=== PATIENT | female | born 1925 | race American Indian/Alaskan Native ===

== ENCOUNTER 2016-12-08 19:33 | Inpatient (IN) | payer MEDICARE ==
[2016-12-08] MEDS ORDERED: APRESOLINE IV ONE ×2 (21:24→23:57)
--- NOTE | 2016-12-08 21:28 | Emergency Department Report ---
ED General Adult HPI - General Chief complaint: Altered Mental Status Stated complaint: UNRESPONSIVE Source: patient, EMS (ems notes not available at time of chart dictation), RN notes reviewed, old records reviewed Mode of arrival: Stretcher Limitations: Other (patient is demented, she karl poor historian, she has no recollection of the event.) - History of Present Illness Initial comments: This is an 89-year-old female. She is previously unknown to me. She has a past medical history of hypertension, dementia, contrary artery disease, peripheral vascular disease. She is brought to the hospital by EMS for resolved altered mental status. As per verbal report from group home nurse to my nurse, the patient was at home, sleeping in bed, and was nonresponsive. She did endorse some diaphoresis. She reports normal vitals and normal fingerstick. long-term paperwork indicates no change in medications recently. Upon arrival to the ER, the patient has no recollection of the event, and she has no complaints at this time. Medication list is reviewed, it appears that she takes Xanax, 0.25 mg once every 6 hours as needed for anxiety, takes multiple blood pressure medications, and Depakote as well. Recent laboratory studies are reviewed and are appreciated. -: Gradual Severity scale (0 -10): 0 Improves with: none Worsens with: none Associated Symptoms: confusion - Related Data Home Medications Medication Instructions Recorded Confirmed Last Taken Acetaminophen [Tylenol] 500 mg PO TID 01/15/13 12/08/16 12/08/16 Ascorbic Acid [Vitamin C] 500 mg PO BID 01/15/13 12/08/16 12/08/16 Calcium Carbonate/Vitamin D3 1 each PO DAILY 01/15/13 12/08/16 12/08/16 [Calcium Carb 500 mg Tab Chew] Docusate Sodium [Colace] 100 mg PO BID 01/15/13 12/08/16 12/08/16 Famotidine [Pepcid] 10 mg PO BID 01/15/13 12/08/16 12/08/16 Hydralazine HCl [Apresoline TAB] 25 mg PO BID 01/15/13 12/08/16 12/08/16 Isosorbide Mononitrate [Isosorbide 60 mg PO DAILY 01/15/13 12/08/16 12/08/16 Mononitrate ER] LORazepam [Ativan] 0.5 mg PO Q4H PRN 01/15/13 12/08/16 12/08/16 Memantine [Namenda] 5 mg PO BID 01/15/13 12/08/16 12/08/16 Metoprolol [Lopressor] 25 mg PO BID 01/15/13 12/08/16 12/08/16 Mirtazapine [Remeron] 15 mg PO DAILY 01/15/13 12/08/16 12/08/16 Multivitamin with Minerals [One 1 each PO DAILY 01/15/13 12/08/16 12/08/16 Daily] Potassium Chloride [K-Dur] 20 meq PO QDAY 01/15/13 12/08/16 12/08/16 cloNIDine [Catapres] 0.1 mg PO BID 01/15/13 12/08/16 12/08/16 Previous Rx's Medication Instructions Recorded Last Taken Type Rivaroxaban [Xarelto] 10 mg PO QDAY #7 tablet 01/18/13 12/08/16 Rx Allergies Allergy/AdvReac Type Severity Reaction Status Date / Time nitrofurantoin Allergy Vomiting Verified 01/15/13 02:09 [From Macrobid] nitrofurantoin Allergy Vomiting Verified 01/15/13 02:09 macrocrystalline [From Macrobid] ED Review of Systems ROS: Stated complaint: UNRESPONSIVE Other details as noted in HPI Comment: Unobtainable due to pts medical conditions ED Past Medical Hx - Past Medical History Hx Hypertension: Yes Hx CVA: Yes Hx Heart Attack/AMI: Yes Hx Tuberculosis: Yes - Social History Smoking Status: Never Smoker - Medications Home Medications: Home Medications Medication Instructions Recorded Confirmed Last Taken Type Acetaminophen [Tylenol] 500 mg PO TID 01/15/13 12/08/16 12/08/16 History Ascorbic Acid [Vitamin C] 500 mg PO BID 01/15/13 12/08/16 12/08/16 History Calcium Carbonate/Vitamin D3 1 each PO DAILY 01/15/13 12/08/16 12/08/16 History [Calcium Carb 500 mg Tab Chew] Docusate Sodium [Colace] 100 mg PO BID 01/15/13 12/08/16 12/08/16 History Famotidine [Pepcid] 10 mg PO BID 01/15/13 12/08/16 12/08/16 History Hydralazine HCl [Apresoline TAB] 25 mg PO BID 01/15/13 12/08/16 12/08/16 History Isosorbide Mononitrate [Isosorbide 60 mg PO DAILY 01/15/13 12/08/16 12/08/16 History Mononitrate ER] LORazepam [Ativan] 0.5 mg PO Q4H PRN 01/15/13 12/08/16 12/08/16 History Memantine [Namenda] 5 mg PO BID 01/15/13 12/08/16 12/08/16 History Metoprolol [Lopressor] 25 mg PO BID 01/15/13 12/08/16 12/08/16 History Mirtazapine [Remeron] 15 mg PO DAILY 01/15/13 12/08/16 12/08/16 History Multivitamin with Minerals [One 1 each PO DAILY 01/15/13 12/08/16 12/08/16 History Daily] Potassium Chloride [K-Dur] 20 meq PO QDAY 01/15/13 12/08/16 12/08/16 History cloNIDine [Catapres] 0.1 mg PO BID 01/15/13 12/08/16 12/08/16 History Rivaroxaban [Xarelto] 10 mg PO QDAY #7 tablet 01/18/13 12/08/16 12/08/16 Rx ED Physical Exam - General General appearance: alert, in no apparent distress - Head Head exam: Present: atraumatic, normocephalic - Eye Eye exam: Present: normal appearance, PERRL, EOMI. Absent: nystagmus, other - ENT ENT exam: Present: normal exam, normal orophraynx, mucous membranes moist, normal external ear exam - Neck Neck exam: Present: normal inspection - Respiratory Respiratory exam: Present: normal lung sounds bilaterally. Absent: respiratory distress, wheezes, rales, rhonchi, stridor, chest wall tenderness - Cardiovascular Cardiovascular Exam: Present: regular rate, normal rhythm, systolic murmur ( there is a 2/6 systolic murmur, right and left second intercostal space, radius to the carotids bilaterally.). Absent: bradycardia, tachycardia, irregular rhythm, diastolic murmur, rubs, gallop - GI/Abdominal GI/Abdominal exam: Present: soft, normal bowel sounds. Absent: distended, tenderness, guarding, rebound, rigid, pulsatile mass - Extremities Exam Extremities exam: Present: normal inspection, normal capillary refill, pedal edema. Absent: calf tenderness - Back Exam Back exam: Present: normal inspection, full ROM. Absent: tenderness, CVA tenderness (R), CVA tenderness (L), muscle spasm, paraspinal tenderness, vertebral tenderness - Neurological Exam Neurological exam: Present: alert (alert to name, and location), other ( Extraocular movements intact. Tongue midline. No facial droop. Facial sensation intact to light touch in the V1, V2, V3 distribution bilaterally. 5 and 5 strength in 4 extremities.. Sensation is intact to light touch in 4 extremities.) - Psychiatric Psychiatric exam: Present: normal affect, normal mood - Skin Skin exam: Present: warm, dry, intact, normal color. Absent: rash ED Course Vital Signs 12/08/16 12/08/16 20:45 23:15 Temperature 98.5 F Pulse Rate 91 H 73 Respiratory 16 16 Rate Blood Pressure 148/76 219/99 [Left] O2 Sat by Pulse 100 100 Oximetry - Reevaluation(s) Reevaluation #1: 12/08/16 22:14 Differential diagnosis: Iatrogenic oversedation, pneumonia, urinary tract infection, intracranial hemorrhage, electrolyte derangement, thyroid derangement , hypertensive urgency, transient ischemic attack, arrhythmia, structural cardiac disease, acute coronary syndrome Assessment and plan: 89-year-old female with episode of diaphoresis, altered mental status. She is also found to be unresponsive. The patient is afebrile currently, with unremarkable vital signs, with the exception of hypertension. Laboratory studies, urinalysis, noncontrast CT scan are pending. Patient's neurologic examination is nonfocal at this time, she is not a TPA candidate given her NIH score of 0. In addition, since we do not know the patient's last known well time, she is also not a TPA candidate. Reevaluation #2: 12/09/16 00:54 Laboratory studies suggest chronic hypothyroidism, renal insufficiency, urinary tract infection, noncontrast CT scan of the brain is negative. Still hypertensive. Given report of diaphoresis, unresponsiveness, uncertain clinical picture, patient to be admitted for presumed urinary tract infection, hypertensive urgency, syncope versus TIA. Case is presented to the Hospital physician, Dr. Muñoz, who accepts the patient to his service. ED Medical Decision Making - Lab Data Result diagrams: 12/08/16 22:56 12/08/16 22:56 - EKG Data -: EKG Interpreted by Me - EKG Data 12/08/16 22:16 Normal sinus, 74 bpm, high left ventricular voltage, abnormal EKG, not morphologically consistent with STEMI, normal axis, QTC prolonged. Abnormal EKG. - Radiology Data Radiology results: image reviewed interpreted by me: X-ray the chest is negative for acute disease, DJD, hyperinflated lungs are suggested Noncontrast CT scan of the brain is negative Critical care attestation.: If time is entered above; I have spent that time in minutes in the direct care of this critically ill patient, excluding procedure time. ED Disposition Clinical Impression: UTI (urinary tract infection), Altered mental status, Hypertensive urgency Disposition: -09 OP ADMIT IP TO THIS HOSP Is pt being admited?: Yes Does the pt Need Aspirin: Yes Condition: Good Referrals: PRIMARY CARE,MD [Primary Care Provider] - 3-5 Days
[2016-12-08 22:56] LABS: Bilirubin,Urine NEG (Negative); Blood,Urine NEG (Negative); Ketones,Urine NEG (Negative); Leukocyte Esterase,Urine MOD (Negative); Nitrite,Urine NEG (Negative); Urobilinogen,Urine < 2.0 mg/dL (<2.0)
--- NOTE | 2016-12-08 23:05 | Cat Scan Report ---
FINAL REPORT EXAM: CT HEAD/BRAIN WO CON HISTORY: Altered Mental Status TECHNIQUE: CT head without contrast PRIORS: None. FINDINGS: No acute intra-axial or extra-axial hemorrhage is identified. There is no evidence of midline shift or mass effect. The ventricles and sulci are within normal limits. Mcdowell-white matter differentiation is intact. No acute parenchymal abnormalities seen. There are patchy and confluent hypodensities within the supratentorial white matter. Bony calvarium is grossly intact. There is increased density within right mastoid air cells in the right middle ear which could reflect otitis/mastoiditis. 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
[2016-12-08 23:10] LABS: Hematocrit 30.6 % (30.3-42.9); Hemoglobin 9.7 gm/dl (10.1-14.3); Mean Corpuscular HGB Conc 32 % (30-34); Mean Corpuscular Hemoglobin 31 pg (28-32); Mean Corpuscular Volume 98 fl (79-97); Platelet Count 155 K/mm3 (140-440); Red Blood Count 3.13 M/mm3 (3.65-5.03); Red Cell Distribution Width 14.5 % (13.2-15.2); White Blood Count 3.5 K/mm3 (4.5-11.0)
[2016-12-08 23:25] LABS: BUN/Creatinine Ratio 15.78; Chloride 104.8 mmol/L (98-107); Potassium 4.4 mmol/L (3.6-5.0)
[2016-12-08 23:27] LABS: Creatine Kinase 80 units/L (30-135)
[2016-12-08] MEDS ORDERED: SYNTHROID PO STA (23:57)
[2016-12-08] MEDS ORDERED: ROCEPHIN/NS 1 GM/50 ML 1 GM/50 ML BAG IV ONE (23:57)
[2016-12-08] MEDS ORDERED: NACL 0.9% 250ML 250 ML IV ONE (23:58)
[2016-12-09] MEDS ORDERED: SYNTHROID PO ONE (00:01)
[2016-12-09 00:40] LABS: INR 1.18 (0.87-1.13)
[2016-12-09] MEDS ORDERED: TYLENOL PO PRN (00:53)
[2016-12-09] MEDS ORDERED: BABY ASPIRIN PO ONE (00:56)
[2016-12-09] MEDS ORDERED: ZOFRAN IV PRN (00:56)
[2016-12-09] MEDS ORDERED: NACL 0.9% 1000 ML 1,000 ML IV SCH (01:00)
[2016-12-09] MEDS: APRESOLINE IV PRN ×3 (01:21→14:32)
[2016-12-09] MEDS ORDERED: CATAPRES PO ONE (01:28)
[2016-12-09] MEDS ORDERED: BABY ASPIRIN ONE (01:32)
--- NOTE | 2016-12-09 06:14 | History and Physical Report ---
CHIEF COMPLAINT: Change in mental status. HISTORY OF PRESENT ILLNESS: The patient is an 89-year-old female brought [facility] a [facility] after she was found to be less responsive. There was also a history of diaphoresis. No history of chest pain. There was also no history of fever, nausea or vomiting. By the time the patient got to the Emergency Room, she was able to respond appropriately. PAST MEDICAL HISTORY: Pertinent for hypertension, cerebrovascular accident, coronary artery disease, status post myocardial infarction, history of tuberculosis. PAST SURGICAL HISTORY: History not well known. FAMILY HISTORY: Noncontributory. SOCIAL HISTORY: The patient stays at a [facility], does not smoke, does not drink alcohol and does not use illicit drugs. MEDICATIONS: The patient is on Tylenol 500 mg by mouth 3 times daily, ascorbic acid 500 mg by mouth twice daily, vitamin D3 one by mouth daily, docusate sodium 100 mg by mouth twice daily, Pepcid 10 mg by mouth twice daily, Apresoline for hydralazine 25 mg by mouth twice daily, isosorbide mononitrate 60 mg by mouth daily, Ativan 0.5 mg p.o. q. 4 hours as needed for anxiety, Namenda or memantine 5 mg by mouth twice daily, Lopressor 25 mg by mouth twice daily, Remeron 15 mg by mouth daily, multivitamin with mineral 1 by mouth daily, K-Dur, potassium chloride 20 mEq by mouth daily, Catapres or clonidine 0.1 mg by mouth twice daily, rivaroxaban or Xarelto 10 mg by mouth daily. ALLERGIES: THE PATIENT IS ALLERGIC TO NITROFURANTOIN and MICROCRYSTALLINE. REVIEW OF SYSTEMS: CONSTITUTIONAL: There is no fever, no chills, no diaphoresis. HEENT: There is no headache or sore throat. CARDIOVASCULAR SYSTEM: There is no chest pain, orthopnea. RESPIRATORY: There is no shortness of breath or cough. GASTROINTESTINAL SYSTEM: There is no nausea, no vomiting, no abdominal pain, diarrhea or constipation. NEUROLOGIC SYSTEM: Change in mental status noted. MUSCULOSKELETAL SYSTEM: There is no joint pain or swelling. DERMATOLOGICAL SYSTEM: Show no skin rash or itching. GENITOURINARY: Show no dysuria, hematuria or flank pain. Rest of system review is normal. PHYSICAL EXAMINATION: GENERAL: At the time of exam, the patient was found to be alert and oriented x 3 and not in acute distress. VITAL SIGNS: Shows normal temperature with a pulse of 72, respirations 18, blood pressure of 209/106, which later came down to 181/89. HEENT: Eyes show pupils to be equal, round, reactive to light and accommodation. Extraocular muscles are intact. NECK: Supple with no JVD or carotid bruit. CARDIOVASCULAR SYSTEM: Show first and second heart sounds with no gallops or murmur. RESPIRATORY SYSTEM: Show good air entry on both sides of the lung with no abnormal breath sounds. GASTROINTESTINAL SYSTEM: Show abdomen to be full, soft, nontender with no organomegaly or rigidity. NEUROLOGIC: Showed no focal deficit. MUSCULOSKELETAL: Show no joint swelling or tenderness. DERMATOLOGICAL: Showed no skin rash or itching. GENITOURINARY SYSTEM: Showing no costovertebral angle tenderness. PERTINENT LABORATORY AND IMAGING STUDIES: The patient had CBC done that shows low white count of 3.5 with low hemoglobin of 9.7 and low hematocrit of 30.6. The patient's coagulation studies showed INR of 1.18. Chemistry shows elevated BUN of 30 with elevated creatinine of 1.9. The patient's TSH level was high with a value of 7.27 with normal free T4. The patient's urinalysis show high urine WBC of 17 with moderate leukocyte esterase and negative urine nitrites. IMAGING STUDIES: The patient had CT of the head done that shows chronic small vessel white matter ischemic change. There is increased density inside the right mastoid air cells and right middle ear, which may indicate mastoiditis DIAGNOSES: 1. Altered mental status. 2. Urinary tract infection. 3. Hypertensive crisis. 4. Mastoiditis. PLAN: The patient will be admitted to medical floor and would be on sequential compressive devices for DVT prophylaxis. The patient will have cardiac enzymes, troponin, total CK and CK-MB checked q. 6 hours x 2 more levels. The patient will be on Tylenol 650 mg every 4 hours for fever, headache and will be on IV Rocephin 1 gram daily. Also, the patient will be on heparin 5000 units q. 12 hours for DVT prophylaxis and will be on hydralazine 10 mg IV every 4 hours for elevated blood pressure above 160/90. The patient will be on normal saline at 75 mL an hour, will be on IV Zofran 4 mg every 8 hours for nausea and vomiting. The patient will also be on oxygen by nasal cannula at 2 liter per minute and will have Nephrology consult because of chronic kidney disease with on-call supervisor photocomposition, Dr. sanchez. The patient's home medications will be reconciled and started. The patient's diet will be 2 g sodium diet. JOB# [id number] OCN/PAM [email or web address]
--- NOTE | 2016-12-09 07:20 | XRay Report ---
Single view chest: History: Mental status. Findings: Borderline cardiomegaly. Trachea is midline. No consolidation, pneumothorax or pleural effusion. Impression: No acute cardiopulmonary findings.
--- NOTE | 2016-12-09 07:45 | Admit Criteria Form ---
Admission Criteria Documentation: HYPERTENSION Clinical Indications for Admission to Inpatient Care ( chefornak/check or initial the applicable condition/criteria) Admission is indicated for 1 or more of the following(1)(2)(3)(4)(5)(6)(7)(8)(9) (10): [ ]I. Hypertensive emergency, with evidence of acute and progressing target organ disease as indicated by 1 or more of the following: [ ]a) Hypertensive encephalopathy (e.g., confusion, altered mental status) (11) [ ]b) Cerebral infarction [ ]c) Intracranial hemorrhage [ ]d) Myocardial ischemia or infarction [ ]e) Heart failure (eg. Pulmonary edema) [ ]f) Aortic dissection [ ]g) Increased creatinine (new) with reduction of more than 50% in estimated glomerular filtration rate from baseline [ ]h) Seizure [ ]i) Papilledema [ ]j) Retinal hemorrhage [ ]k) Microangiopathic hemolytic anemia [ ]l) Other significant finding secondary to hypertension [ ]II. Adrenergic or sympathomimetic crisis (e.g., severe hypertension due to pheochromocytoma crisis, cocaine, phencyclindine, or amphetamine intoxication, or clonidine withdrawal) [ X]III. Severe hypertension (SBP greater than 180 mmHg or DBP greater than 110 mmHg or greater than the 95th percentile for age, gender, and height in pediatric patients) that cannot be controlled (e.g., to SBP less than 160 mmHg and DBP less than 100 mmHg in adults) by treatment with oral medication in emergency department or observation care (12) Extended stay beyond goal length of staymay be needed for(21)(22): [ ]a) Persistent hypertensive encephalopathy [ ]b) Continuation of pulmonary edema [ ]c) Recurring or persistent severe hypertension [ ]d) Target organ damage (eg, angina, stroke, aortic dissection) The original [employer] content created by [employer] has been revised. The portions of the content which have been revised are identified through the use of italic text or in bold, and [employer] has neither reviewed nor approved the modified material. All other unmodified content is copyright [employer]. Please see references footnoted in the original [employer] edition 2016 Admission Criteria Met: Yes
[2016-12-09] MEDS: TYLENOL PO SCH ×3 (08:47→21:45)
[2016-12-09] MEDS: PEPCID PO SCH ×2 (09:56→21:45)
[2016-12-09] MEDS: HEPARIN SUB-Q SCH ×2 (09:56→21:45)
[2016-12-09] MEDS: LOPRESSOR PO SCH ×2 (09:57→21:45)
[2016-12-09] MEDS: VITAMIN C PO SCH ×2 (09:57→21:45)
[2016-12-09] MEDS: IMDUR PO SCH (09:57)
[2016-12-09] MEDS: COLACE PO SCH ×2 (09:57→21:45)
[2016-12-09] MEDS: CATAPRES PO SCH ×2 (09:58→21:45)
[2016-12-09] MEDS: OYSCO D 500 MG-200 UNIT PO SCH (09:58)
[2016-12-09] MEDS: THERAGRAN-M Tab PO SCH (09:58)
[2016-12-09] MEDS: NAMENDA PO SCH ×2 (09:59→21:45)
[2016-12-09] MEDS: REMERON PO SCH (09:59)
[2016-12-09] MEDS ORDERED: MULTIVITAMIN WITH MINERALS PO SCH (10:00)
[2016-12-09] MEDS ORDERED: K-DUR PO SCH (10:00)
[2016-12-09] MEDS ORDERED: VITAMIN D3 PO SCH (10:00)
[2016-12-09] MEDS ORDERED: CALCIUM CARBONATE PO SCH (10:00)
[2016-12-09] MEDS ORDERED: NON-FORMULARY (Ascorbic Acid [Vitamin C] 500 MG) PO SCH (10:00)
[2016-12-09] MEDS ORDERED: APRESOLINE PO SCH ×2 (10:00→22:00)
[2016-12-09] MEDS ORDERED: NON-FORMULARY (Hydralazine Hcl [Apresoline Tab] 25 MG) PO SCH (10:00)
--- NOTE | 2016-12-09 14:30 | Event Note ---
Date: 12/09/16 Patient seen and examined, in no acute distress. still confused. call placed for medication verification in respect to xanax, depakote and xarelto. sandra current care.
--- NOTE | 2016-12-09 18:12 | Consultation ---
History of Present Illness - Reason for Consult Consult date: 12/09/16 chronic renal failure Requesting physician: MARIAN MCKEON - History of Present Illness This is an 89yo AAF, well known to me from outpatient CKD follow ups, with past medical history of hypertension, dementia, coronary artery disease, peripheral vascular disease, CKD stage 4, secondary hyperparathyroidism, who was sent from [place] to [facility] ER for change of mental status and unresponsiveness. In ER patient was found to have accelerated HTN with BP as high as 219/99, mmHg. CXR was unremarkable and CT head showed chronic white matter ischemic changes. Labs showed elevated BUN/Cr at 30/1.9mg/dl, UA with elevated WBC at 17/ HPF. pt was started on ceftrixone for possible UTI. Renal consult requested for management of CKD. Renal function appears to be stable, outpatient Cr has been running around 2.2- 2.6mg/dl in the past. Pt not able to give detailed history. Past History Past Medical History: hypertension, renal failure Past Surgical History: PTCA Social history: other (lives in [place]) Family history: diabetes, hypertension Medications and Allergies Allergies Allergy/AdvReac Type Severity Reaction Status Date / Time nitrofurantoin Allergy Vomiting Verified 01/15/13 02:09 [From Macrobid] nitrofurantoin Allergy Vomiting Verified 01/15/13 02:09 macrocrystalline [From Macrobid] Home Medications Medication Instructions Recorded Confirmed Last Taken Type Acetaminophen [Tylenol] 500 mg PO TID 01/15/13 12/09/16 01/14/13 History Ascorbic Acid [Vitamin C] 500 mg PO BID 01/15/13 12/09/16 01/14/13 History Calcium Carbonate/Vitamin D3 1 each PO DAILY 01/15/13 12/08/16 12/08/16 History [Calcium Carb 500 mg Tab Chew] Docusate Sodium [Colace] 100 mg PO BID 01/15/13 12/08/16 12/08/16 History Famotidine [Pepcid] 10 mg PO BID 01/15/13 12/08/16 12/08/16 History Hydralazine HCl [Apresoline TAB] 25 mg PO BID 01/15/13 12/08/16 12/08/16 History Isosorbide Mononitrate [Isosorbide 60 mg PO DAILY 01/15/13 12/08/1612/08/17 History Mononitrate ER] LORazepam [Ativan] 0.5 mg PO Q4H PRN 01/15/13 12/08/16 12/08/16 History Memantine [Namenda] 5 mg PO BID 01/15/13 12/08/16 12/08/16 History Metoprolol [Lopressor] 25 mg PO BID 01/15/13 12/08/16 12/08/16 History Mirtazapine [Remeron] 15 mg PO DAILY 01/15/13 12/08/16 12/08/16 History Multivitamin with Minerals [One 1 each PO DAILY 01/15/13 12/08/16 12/08/16 History Daily] Potassium Chloride [K-Dur] 20 meq PO QDAY 01/15/13 12/08/16 12/08/16 History cloNIDine [Catapres] 0.1 mg PO BID 01/15/13 12/08/16 12/08/16 History Rivaroxaban [Xarelto] 10 mg PO QDAY #7 tablet 01/18/13 12/08/16 12/08/16 Rx Active Meds: Active Medications Acetaminophen (Tylenol) 500 mg PO TID [facility] Last Admin: 12/09/16 14:33 Dose: 500 mg Ascorbic Acid (Vitamin C) 500 mg PO BID [facility] Last Admin: 12/09/16 09:57 Dose: 500 mg Calcium/Vitamin D (Oysco D 500 Mg-200 Unit) 1 each PO DAILY [facility] Last Admin: 12/09/16 09:58 Dose: 1 each Clonidine HCl (Catapres) 0.1 mg PO BID [facility] Last Admin: 12/09/16 09:58 Dose: 0.1 mg Docusate Sodium (Colace) 100 mg PO BID [facility] Last Admin: 12/09/16 09:57 Dose: 100 mg Famotidine (Pepcid) 10 mg PO BID [facility] Last Admin: 12/09/16 09:56 Dose: 10 mg Heparin Sodium (Porcine) (Heparin) 5,000 unit SUB-Q Q12HR [facility] Last Admin: 12/09/16 09:56 Dose: 5,000 unit Hydralazine HCl (Apresoline) 10 mg IV Q4HR PRN PRN Reason: Blood Pressure Last Admin: 12/09/16 14:32 Dose: 10 mg Hydralazine HCl (Apresoline) 25 mg PO BID [facility] Last Admin: 12/09/16 09:58 Dose: 25 mg Ceftriaxone Sodium (Rocephin/Ns 1 Gm/50 Ml) 1 gm in 50 mls @ 100 mls/hr IV Q24HR@2200 [facility] PRN Reason: Protocol Sodium Chloride (Nacl 0.9% 1000 Ml) 1,000 mls @ 75 mls/hr IV DIRECT [facility] Last Admin: 12/09/16 05:34 Dose: 75 mls/hr Isosorbide Mononitrate (Imdur) 60 mg PO DAILY [facility] Last Admin: 12/09/16 09:57 Dose: 60 mg Lorazepam (Ativan) 0.5 mg PO Q4H PRN PRN Reason: Anxiety Memantine (Namenda) 5 mg PO BID [facility] Last Admin: 12/09/16 09:59 Dose: 5 mg Metoprolol Tartrate (Lopressor) 25 mg PO BID [facility] Last Admin: 12/09/16 09:57 Dose: 25 mg Mirtazapine (Remeron) 15 mg PO DAILY [facility] Last Admin: 12/09/16 09:59 Dose: 15 mg Multivitamins/Minerals (Theragran-M Tab) 1 each PO QDAY [facility] Last Admin: 12/09/16 09:58 Dose: 1 each Ondansetron HCl (Zofran) 4 mg IV Q8H PRN PRN Reason: Nausea And Vomiting Potassium Chloride (K-Dur) 20 meq PO QDAY [facility] Last Admin: 12/09/16 09:58 Dose: 20 meq Review of Systems ROS unobtainable: due to mental status Exam - Vital Signs Vital signs: Vital Signs Temp Pulse Resp BP Pulse Ox 98.5 F 91 H 16 148/76 100 12/08/16 20:45 12/08/16 20:45 12/08/16 20:45 12/08/16 20:45 12/08/16 20:45 - General Appearance General appearance: appears stated age, fatigue, frail EENT: ATNC, PERRL, mucous membranes moist Neck: Present: neck supple Respiratory: Clear to Ascultation Heart: regular, S1S2 Gastrointestinal: Present: normoactive bowel sounds Integumentary: no rash, other (no edema ) Neurologic: confused, disoriented Results - Lab Results 12/08/16 22:56 08/21/17 22:56 Most recent lab results Calcium 9.0 mg/dL (8.4-10.2) 12/08/16 22:56 Laboratory Tests 12/08/16 12/08/16 12/08/16 22:04 22:56 22:56 PT INR Total Creatine Kinase CK-MB (CK-2) CK-MB (CK-2) Rel Index Troponin T < 0.010 Albumin TSH 7.270 H Free T4 Urine Color Straw Urine Turbidity Clear Urine pH 7.0 Ur Specific [place] 1.006 Urine Protein 30 mg/dl Urine Glucose (UA) Neg Urine Ketones Neg Urine Blood Neg Urine Nitrite Neg Urine Bilirubin Neg Urine Urobilinogen < 2.0 Ur Leukocyte Esterase Mod Urine WBC (Auto) 17.0 H Urine RBC (Auto) 1.0 U Epithel Cells (Auto) < 1.0 Valproic Acid 12/08/16 12/09/16 12/09/16 22:56 00:00 00:10 PT 15.6 H INR 1.18 H Total Creatine Kinase CK-MB (CK-2) CK-MB (CK-2) Rel Index Troponin T Albumin TSH Free T4 1.11 Urine Color Urine Turbidity Urine pH Ur Specific [place] Urine Protein Urine Glucose (UA) Urine Ketones Urine Blood Urine Nitrite Urine Bilirubin Urine Urobilinogen Ur Leukocyte Esterase Urine WBC (Auto) Urine RBC (Auto) U Epithel Cells (Auto) Valproic Acid 20.3 L 12/09/16 12/09/16 12/09/16 06:10 08:47 08:47 PT INR Total Creatine Kinase 150 H CK-MB (CK-2) 3.0 CK-MB (CK-2) Rel Index 2.0 Troponin T 0.014 Albumin 3.5 L TSH Free T4 Urine Color Urine Turbidity Urine pH Ur Specific [place] Urine Protein Urine Glucose (UA) Urine Ketones Urine Blood Urine Nitrite Urine Bilirubin Urine Urobilinogen Ur Leukocyte Esterase Urine WBC (Auto) Urine RBC (Auto) U Epithel Cells (Auto) Valproic Acid 19.7 L Assessment and Plan - Patient Problems (1) Hypertensive urgency Current Visit: Yes Status: Acute Plan to address problem: pt receiving IV hydralazine prn for target BP <160/90 will increase po hydralazine to 100mg po tid and add lisinopril 40mg po qd for additional BP control, given stable renal function. Will d/c K Dur to avoid hyperkalemia while being treated with YESI-I (2) CKD (chronic kidney disease) stage 4, GFR 15-29 ml/min Current Visit: Yes Status: Chronic Plan to address problem: renal function stable, better than patient's baseline with Cr around 2.2 -2.6mg/ dl over the last year. cont supportive care for CKD, avoid nephrotoxins, NSAIDs, IV contrast. Will monitor I/Os, lytes/renal parameters and make further recommendations. (3) UTI (urinary tract infection) Current Visit: Yes Status: Acute Qualifiers: Urinary tract infection type: U Hematuria presence: H Indwelling urinary catheter type: I Encounter type: E Plan to address problem: cont ceftriaxone (4) Altered mental status Current Visit: Yes Status: Acute Qualifiers: Altered mental status type: A Coma depth: C Coma timing: C
[2016-12-09] MEDS: ROCEPHIN/NS 1 GM/50 ML 1 GM/50 ML BAG IV SCH (21:45)
[2016-12-09] MEDS: ATIVAN PO PRN (21:45)
[2016-12-09] MEDS: ZESTRIL PO SCH (21:45)
[2016-12-09] MEDS: APRESOLINE PO SCH (21:45)
[2016-12-10] MEDS: ATIVAN PO PRN ×3 (02:42→23:50)
[2016-12-10] MEDS: APRESOLINE PO SCH ×3 (04:27→20:28)
[2016-12-10] MEDS ORDERED: NORMODYNE IV ONE (05:14)
[2016-12-10] MEDS ORDERED: CATAPRES-TTS PATCH TD SCH ×2 (06:00)
--- NOTE | 2016-12-10 09:36 | Progress Note ---
Assessment and Plan Assessment and plan: Shows an 89-year-old female with past medical history of CAD, hypertension, dementia, CAD, PVD and secondary hyperparathyroidism was admitted to the hospital from halfway for unresponsiveness. I did discuss with the halfway facility decided that the patient was found unresponsive although did have a pulse and was sent to the hospital. Prior to this even though was no other complaints noted. She is on her normal state confused and is totally dependent for care except feeding herself. In the ER she was noted to have systolic blood pressure 219/99 and an unremarkable chest x-ray with a CT head showing chronic white matter ischemic changes. She was also noted to have urinary tract infection or she cannot give us any history she is being treated for possible UTI done maybe contributing to this. On arrival to the facility she was awake alert and oriented to person No other events as noted. Also on review of the facility they do not recall her taken xarelto. Metabolic encephalopathy with unresponsiveness-resolved * Possibly secondary to UTI, continue current treatment. No growth in culture Acute cystitis * Continue Rocephin Hypertensive urgency * Clonidin patch replaced, possibly rebound. Nephrology input noted with increase in hydralazine CKD stage IV * at baseline Dementia * Continue home meds, hold xanax for now. CAD/PVD * Facility states patient is not on xarleto. Continue current treatment Anxiety disorder * Redirection Dvt/gi PROPHY Disposition: Anticipate discharge in AM Case discussed with Nursing staff and [facility]. History Interval history: Patient seen and examined today remains pleasantly confused on the nose that she takes blood pressure medications.Therefore concerned due to altered mental status from review of reports and also I personally called the halfway and they did state that the patient is always confused due to her Dementia condition. She is total care dependent. She does ambulate with a wheelchair. She was admitted in the hospital due to"were unable to wake her up. She had a pulse" Hospitalist Physical - Physical exam Narrative exam: VITAL SIGNS: Reviewed. GENERAL: The patient appeared well nourished and normally developed, pleasantly confused. Vital signs as documented. HEAD: No signs of head trauma. EYES: Pupils are equal. Extraocular motions intact. EARS: Hearing grossly intact. MOUTH: Oropharynx is normal. NECK: No adenopathy, no JVD. CHEST: Chest with clear breath sounds bilaterally. No wheezes, rales, or rhonchi. CARDIAC: Regular rate and rhythm. S1 and S2, without murmurs, gallops, or rubs. VASCULAR: No Edema. Peripheral pulses normal and equal in all extremities. ABDOMEN: Soft, without detectable tenderness. No sign of distention. No rebound or guarding, and no masses palpated. Bowel Sounds normal. MUSCULOSKELETAL: Good range of motion of all major joints. Extremities without clubbing, cyanosis or edema. NEUROLOGIC EXAM: Alert and oriented x person only. No focal sensory or strength deficits. Speech normal. Follows commands. Gait not assessed PSYCHIATRIC: Mood normal. SKIN: No rash or lesions. - Constitutional Vitals: Temp Pulse Resp BP Pulse Ox 98.1 F 102 H 18 170/94 97 12/10/16 04:40 12/10/16 06:40 12/10/16 04:40 12/10/16 06:40 12/10/16 04:40 Results - Labs CBC & Chem 7: 12/08/16 22:56 12/08/16 22:56 Labs: Laboratory Last Values WBC 3.5 K/mm3 (4.5-11.0) L 12/08/16 22:56 RBC 3.13 M/mm3 (3.65-5.03) L 12/08/16 22:56 Hgb 9.7 gm/dl (10.1-14.3) L 12/08/16 22:56 Hct 30.6 % (30.3-42.9) 12/08/16 22:56 MCV 98 fl (79-97) H 12/08/16 22:56 MCH 31 pg (28-32) 12/08/16 22:56 MCHC 32 % (30-34) 12/08/16 22:56 RDW 14.5 % (13.2-15.2) 12/08/16 22:56 Plt Count 155 K/mm3 (140-440) 12/08/16 22:56 PT 15.6 Sec. (12.2-14.9) H 12/09/16 00:00 INR 1.18 (0.87-1.13) H 12/09/16 00:00 APTT TNR 12/08/16 22:56 Sodium 141 mmol/L (137-145) 12/08/16 22:56 Potassium 4.4 mmol/L (3.6-5.0) 12/08/16 22:56 Chloride 104.8 mmol/L (98-107) 12/08/16 22:56 Carbon Dioxide 23 mmol/L (22-30) 12/08/16 22:56 Anion Gap 18 mmol/L 12/08/16 22:56 BUN 30 mg/dL (7-17) H 12/08/16 22:56 Creatinine 1.9 mg/dL (0.7-1.2) H 12/08/16 22:56 Estimated GFR 30 ml/min 12/08/16 22:56 BUN/Creatinine Ratio 15.78 % 12/08/16 22:56 Glucose 94 mg/dL (65-100) 12/08/16 22:56 Calcium 9.0 mg/dL (8.4-10.2) 12/08/16 22:56 Ammonia 45.0 umol/L (25-60) 12/08/16 22:56 Total Creatine Kinase 68 units/L (30-135) 12/09/16 12:24 CK-MB (CK-2) 3.0 ng/mL (0.0-4.0) 12/09/16 12:24 CK-MB (CK-2) Rel Index 4.4 (0-4) H 12/09/16 12:24 Troponin T 0.019 ng/mL (0.00-0.029) 12/09/16 12:24 Albumin 3.5 g/dL (3.9-5) L 12/09/16 08:47 TSH 7.270 mlU/mL (0.270-4.200) H 12/08/16 22:56 Free T4 1.11 ng/dL (0.76-1.46) 12/09/16 00:10 Urine Color Straw (Yellow) 12/08/16 22:04 Urine Turbidity Clear (Clear) 12/08/16 22:04 Urine pH 7.0 (5.0-7.0) 12/08/16 22:04 Ur Specific [place] 1.006 (1.003-1.030) 12/08/16 22:04 Urine Protein 30 mg/dl mg/dL (Negative) 12/08/16 22:04 Urine Glucose (UA) Neg mg/dL (Negative) 12/08/16 22:04 Urine Ketones Neg mg/dL (Negative) 12/08/16 22:04 Urine Blood Neg (Negative) 12/08/16 22:04 Urine Nitrite Neg (Negative) 12/08/16 22:04 Urine Bilirubin Neg (Negative) 12/08/16 22:04 Urine Urobilinogen < 2.0 mg/dL (<2.0) 12/08/16 22:04 Ur Leukocyte Esterase Mod (Negative) 12/08/16 22:04 Urine WBC (Auto) 17.0 /HPF (0.0-6.0) H 12/08/16 22:04 Urine RBC (Auto) 1.0 /HPF (0.0-6.0) 12/08/16 22:04 U Epithel Cells (Auto) < 1.0 /HPF (0-13.0) 12/08/16 22:04 Valproic Acid 19.7 ug/mL (50-100) L 12/09/16 08:47
--- NOTE | 2016-12-10 11:03 | Progress Note ---
Assessment and Plan - Patient Problems (1) Hypertensive urgency Current Visit: Yes Status: Acute Plan to address problem: BP improved with increased po hydralazine to 100mg po tid and added lisinopril 40mg po qd. monitor BP on current BP regimen. Will d/c K Dur to avoid hyperkalemia while being treated with YESI-I (2) CKD (chronic kidney disease) stage 4, GFR 15-29 ml/min Current Visit: Yes Status: Chronic Plan to address problem: renal function stable, better than patient's baseline with Cr around 2.2 -2.6mg/ dl over the last year. cont supportive care for CKD, avoid nephrotoxins, NSAIDs, IV contrast. Will monitor I/Os, lytes/renal parameters and make further recommendations. (3) UTI (urinary tract infection) Current Visit: Yes Status: Acute Qualifiers: Urinary tract infection type: U Hematuria presence: H Indwelling urinary catheter type: I Encounter type: E Plan to address problem: cont ceftriaxone (4) Altered mental status Current Visit: Yes Status: Acute Qualifiers: Altered mental status type: A Coma depth: C Coma timing: C Subjective Date of service: 12/10/16 Interval history: Pt awake, confused, disoriented today. in no acute respiratory distress Objective - Vital Signs Vital signs: Vital Signs - 12hr 12/10/16 12/10/16 12/10/16 00:08 04:40 05:31 Temperature 98.2 F 98.1 F Pulse Rate 100 H 97 H 101 H Respiratory 18 18 Rate Blood Pressure 142/86 188/115 228/116 O2 Sat by Pulse 97 97 Oximetry 12/10/16 12/10/16 06:40 08:00 Temperature 97.9 F Pulse Rate 102 H 106 H Respiratory 18 Rate Blood Pressure 170/94 141/111 O2 Sat by Pulse Oximetry - General Appearance General appearance: appears stated age, frail EENT: ATNC, PERRL, mucous membranes moist Neck: no JVD Respiratory: Present: Clear to Ascultation Cardiology: regular, S1S2 Gastrointestinal: normal, normoactive bowel sounds Integumentary: no rash, other (no edema ) Neurologic: no focal deficit, CN 3-12 intact - Lab 12/08/16 22:56 12/08/16 22:56 Most recent lab results Calcium 9.0 mg/dL (8.4-10.2) 12/08/16 22:56
[2016-12-10 13:18] LABS: BUN/Creatinine Ratio 13.91; Calcium 9.2 mg/dL (8.4-10.2); Chloride 105.3 mmol/L (98-107); Potassium 4.2 mmol/L (3.6-5.0)
[2016-12-10] MEDS: IMDUR PO SCH (17:06)
[2016-12-10] MEDS: CATAPRES PO SCH ×2 (17:06→23:49)
[2016-12-10] MEDS: ZESTRIL PO SCH (17:06)
[2016-12-10] MEDS: REMERON PO SCH (17:06)
[2016-12-10] MEDS: LOPRESSOR PO SCH ×2 (17:07→23:49)
[2016-12-10] MEDS: NAMENDA PO SCH (17:07)
[2016-12-10] MEDS: PEPCID PO SCH ×2 (17:07→23:49)
[2016-12-10] MEDS: THERAGRAN-M Tab PO SCH (17:08)
[2016-12-10] MEDS: HEPARIN SUB-Q SCH ×2 (17:08→23:50)
[2016-12-10] MEDS: OYSCO D 500 MG-200 UNIT PO SCH (17:08)
[2016-12-10] MEDS: VITAMIN C PO SCH ×2 (17:08→23:49)
[2016-12-10] MEDS: COLACE PO SCH ×2 (17:08→23:49)
[2016-12-10] MEDS: TYLENOL PO SCH ×2 (17:09→20:00)
[2016-12-10] MEDS: ROCEPHIN/NS 1 GM/50 ML 1 GM/50 ML BAG IV SCH (23:47)
[2016-12-11] MEDS: APRESOLINE IV PRN ×2 (00:22→06:53)
[2016-12-11] MEDS: NAMENDA PO SCH ×2 (03:30→15:05)
[2016-12-11] MEDS: APRESOLINE PO SCH ×2 (03:30→10:59)
[2016-12-11 06:37] LABS: BUN/Creatinine Ratio 14.09; Chloride 105.9 mmol/L (98-107); Potassium 4.2 mmol/L (3.6-5.0)
[2016-12-11] MEDS: ATIVAN PO PRN (06:50)
[2016-12-11] MEDS: HEPARIN SUB-Q SCH (10:57)
[2016-12-11] MEDS: PEPCID PO SCH (10:58)
[2016-12-11] MEDS: ZESTRIL PO SCH (10:58)
[2016-12-11] MEDS: COLACE PO SCH (10:59)
[2016-12-11] MEDS: OYSCO D 500 MG-200 UNIT PO SCH (10:59)
[2016-12-11] MEDS: THERAGRAN-M Tab PO SCH (10:59)
[2016-12-11] MEDS: VITAMIN C PO SCH (10:59)
[2016-12-11] MEDS: CATAPRES PO SCH (10:59)
[2016-12-11] MEDS: IMDUR PO SCH (10:59)
[2016-12-11] MEDS: REMERON PO SCH (11:00)
[2016-12-11] MEDS: LOPRESSOR PO SCH (11:01)
[2016-12-11] MEDS: TYLENOL PO SCH ×2 (11:01→14:48)
--- NOTE | 2016-12-11 11:25 | Discharge Summary ---
Providers - Providers Date of Admission: 12/09/16 00:47 Date of discharge: 12/11/16 Attending physician: APOLINAR MENEZES MD 12/09/16 06:10 Consult to Physician [CONS] Routine Consulting Provider: SHINE MEDINA Reason For Exam: CKD Place consult to:: SHINE MEDINA G Notified:: Adelaida NEGRON Phone number called:: Was contact made?: Yes If yes, spoke with:: Nancy-answering service Time called:: 08:40 12/10/16 09:38 Occupational Therapy Evaluate and Treat [CONS] Routine Comment: Reason For Exam: debility Physical Therapy Evaluation and Treat [CONS] Routine Comment: Reason For Exam: debility Primary care physician: ACID OPERATOR Hospitalization Reason for admission: Comatose. Condition: Stable Hospital course: Shows an 89-year-old female with past medical history of CAD, hypertension, dementia, CAD, PVD and secondary hyperparathyroidism was admitted to the hospital from residential for unresponsiveness. I did discuss with the residential facility decided that the patient was found unresponsive although did have a pulse and was sent to the hospital. Prior to this even though was no other complaints noted. She is on her normal state confused and is totally dependent for care except feeding herself. In the ER she was noted to have systolic blood pressure 219/99 and an unremarkable chest x-ray with a CT head showing chronic white matter ischemic changes. She was also noted to have urinary tract infection or she cannot give us any history she is being treated for possible UTI done maybe contributing to this. On arrival to the facility she was awake alert and oriented to person No other events as noted. Also on review of the facility they do not recall her taken xarelto. Metabolic encephalopathy with unresponsiveness-resolved * Patient was treated for UTI, No growth in culture Acute cystitis * Rocephin Hypertensive urgency * Clonidin patch replaced, now that patient is more awake, was transitioned to oral, Imdure was also increased. CKD stage IV * at baseline * k-dur Was discontinued due to patient being on ACEI Dementia * Continue home meds, hold xanax for now. CAD/PVD * Facility states patient is not on xarleto. Continue current treatment Anxiety disorder * Redirection Disposition: [place] Time spent for discharge: 35 mins Core Measure Documentation - Palliative Care Palliative Care/ Comfort Measures: Not Applicable - Core Measures Any of the following diagnoses?: none - VTE Discharge Requirements Deep Vein Thrombosis/Pulmonary Embolism Present on Admission: No Exam - Physical Exam Narrative exam: VITAL SIGNS: Reviewed. GENERAL: The patient appeared well nourished and normally developed, pleasantly confused. Vital signs as documented. HEAD: No signs of head trauma. EYES: Pupils are equal. Extraocular motions intact. EARS: Hearing grossly intact. MOUTH: Oropharynx is normal. NECK: No adenopathy, no JVD. CHEST: Chest with clear breath sounds bilaterally. No wheezes, rales, or rhonchi. CARDIAC: Regular rate and rhythm. S1 and S2, without murmurs, gallops, or rubs. VASCULAR: No Edema. Peripheral pulses normal and equal in all extremities. ABDOMEN: Soft, without detectable tenderness. No sign of distention. No rebound or guarding, and no masses palpated. Bowel Sounds normal. MUSCULOSKELETAL: Good range of motion of all major joints. Extremities without clubbing, cyanosis or edema. NEUROLOGIC EXAM: Alert and oriented x person only. No focal sensory or strength deficits. Speech normal. Follows commands. Gait not assessed PSYCHIATRIC: Mood normal. SKIN: No rash or lesions. - Constitutional Vitals: Temp Pulse Resp BP Pulse Ox 97.5 F L 67 18 173/83 100 12/11/16 07:40 12/11/16 11:01 12/11/16 07:40 12/11/16 11:01 12/11/16 07:40 Plan Activity: advance as tolerated, fall precautions Diet: low cholesterol, low salt Special Instructions: record daily BP diary Follow up with: PRIMARY CARE, [Primary Care Provider] - 3-5 Days Prescriptions: hydrALAZINE [Apresoline TAB] 100 mg PO Q8H #30 tab Lisinopril [Zestril TAB] 40 mg PO QDAY #30 tablet LORazepam [Ativan] 0.5 mg PO Q4H PRN #10 tablet PRN Reason: Anxiety
--- NOTE | 2016-12-11 11:38 | Progress Note ---
Assessment and Plan - Patient Problems (1) Hypertensive urgency Current Visit: Yes Status: Acute Plan to address problem: BP improved, monitor BP on current BP regimen. Will d/c K Dur to avoid hyperkalemia while being treated with YESI-I (2) CKD (chronic kidney disease) stage 4, GFR 15-29 ml/min Current Visit: Yes Status: Chronic Plan to address problem: renal function stable, better than patient's baseline with Cr around 2.2 -2.6mg/ dl over the last year. cont supportive care for CKD, avoid nephrotoxins, NSAIDs, IV contrast. Will monitor I/Os, lytes/renal parameters and make further recommendations. Stable for discharge from renal stand point (3) UTI (urinary tract infection) Current Visit: Yes Status: Acute Qualifiers: Urinary tract infection type: U Hematuria presence: H Indwelling urinary catheter type: I Encounter type: E Plan to address problem: cont ceftriaxone (4) Altered mental status Current Visit: Yes Status: Acute Qualifiers: Altered mental status type: A Coma depth: C Coma timing: C Plan to address problem: improved Subjective Date of service: 12/11/16 Interval history: Pt awake, confused, disoriented. in no acute respiratory distress Objective - Vital Signs Vital signs: Vital Signs - 12hr 12/10/16 12/11/16 12/11/16 23:49 00:22 00:34 Temperature 98.0 F Pulse Rate 88 66 76 Respiratory 16 Rate Blood Pressure 160/83 221/103 173/99 O2 Sat by Pulse Oximetry 12/11/16 12/11/16 12/11/16 06:00 06:31 06:53 Temperature 97.8 F Pulse Rate 76 68 68 Respiratory 18 Rate Blood Pressure 171/85 171/85 O2 Sat by Pulse 100 Oximetry 12/11/16 12/11/16 12/11/16 07:40 10:58 10:59 Temperature 97.5 F L Pulse Rate 67 67 67 Respiratory 18 Rate Blood Pressure 173/83 173/83 173/83 O2 Sat by Pulse 100 Oximetry 12/11/16 11:01 Temperature Pulse Rate 67 Respiratory Rate Blood Pressure 173/83 O2 Sat by Pulse Oximetry - General Appearance General appearance: well-nourished, appears stated age EENT: ATNC, PERRL, mucous membranes moist Neck: no JVD Respiratory: Present: Clear to Ascultation Cardiology: regular, S1S2 Gastrointestinal: normal, normoactive bowel sounds Integumentary: no rash, other (no edema ) Neurologic: no focal deficit, strength 5/5, CN 3-12 intact Psychiatric: mood/affect appropriate, cooperative - Lab 12/08/16 22:56 12/11/16 05:50 Most recent lab results Calcium 9.0 mg/dL (8.4-10.2) 12/11/16 05:50
[2016-12-11] MEDS ORDERED: PNEUMOVAX 23 IM ONE (12:00)
[2016-12-11 12:37] VITALS: BP 152/70
== END 2016-12-11 15:37 | DRG 682 ==
LOC: ED 19:33 → 4A 12-09 00:47
PROVIDERS: ADMIT Internal Medicine; ATTEND Internal Medicine
PROC: 3E0234Z Introduction of Serum, Toxoid and Vaccine into Muscle, Percutaneous Approach (ICD-10-PCS; principal; 2016-12-09)
DX: I12.9 Hypertensive chronic kidney disease with stage 1 through stage 4 chronic kidney disease, or unspecified chronic kidney disease (principal); G93.41 Metabolic encephalopathy; N39.0 Urinary tract infection, site not specified; N18.4 Chronic kidney disease, stage 4 (severe); H70.90 Unspecified mastoiditis, unspecified ear; I25.10 Atherosclerotic heart disease of native coronary artery without angina pectoris; I73.9 Peripheral vascular disease, unspecified; F03.90 Unspecified dementia, unspecified severity, without behavioral disturbance, psychotic disturbance, mood disturbance, and anxiety; I16.0 Hypertensive urgency; F41.9 Anxiety disorder, unspecified; Z88.8 Allergy status to other drugs, medicaments and biological substances; Z86.73 Personal history of transient ischemic attack (TIA), and cerebral infarction without residual deficits; Z98.61 Coronary angioplasty status; Z83.3 Family history of diabetes mellitus; Z82.49 Family history of ischemic heart disease and other diseases of the circulatory system
CPT/HCPCS: 36415; 70450; 71010; 80048; 80164; 81001; 82040; 82140; 82550; 82553; 84439; 84443; 84484; 85027; 85610; 87086; 90732; 93005; 93010; 96365; 96375; 96376; J0360; J0696; J1644; J7030; J7050